=== PATIENT | male | born 1960 | race Caucasian/White ===

== ENCOUNTER 2019-03-11 08:41 | Inpatient (IN) ==
[2019-03-11 09:31] LABS: Basophils # 0.1 K/mcL (0.0-0.2); Basophils % 1.1 %; Eosinophils # 0.1 K/mcL (0.0-0.6); Eosinophils % 1.7 %; Hemoglobin 15.6 g/dL (12.9-16.9); Immature Granulocytes % 0.5 % (0-4); Lymphocytes # 2.3 K/mcL (0.6-4.6); Lymphocytes % 35.7 %; Mean Corpuscular HGB Conc 36.3 g/dL (31.6-35.5); Mean Corpuscular Hemoglobin 32.8 pg (28.0-33.3); Mean Corpuscular Volume 90.5 fL (83.0-100.0); Monocytes # 0.9 K/mcL (0.0-1.3); Monocytes % 13.7 %; Platelet Count 248 K/mcL (140-400); Red Blood Count 4.75 M/mcL (4.19-5.50); Red Cell Distribution Width 12.6 % (11.5-14.5); Segmented Neutrophils % 47.3 %; White Blood Count 6.3 K/mcL (4.3-11.1)
[2019-03-11 09:51] LABS: Calcium 8.9 mg/dL (8.6-10.3); Potassium 3.3 mEq/L (3.5-5.1)
[2019-03-11] MEDS ORDERED: 0.9 % Sodium Chloride 500 ML IVC ONE (09:53)
[2019-03-11] MEDS ORDERED: Naloxone 0.4 MG/ML INJ IVP PRN (11:44)
[2019-03-11] MEDS ORDERED: *HR* Dextrose 50 % in Water (Syg) 50 ML SYRINGE IVP PRN (11:48)
[2019-03-11] MEDS ORDERED: D5% in Water 1,000 ML IVC PRN (11:48)
[2019-03-11] MEDS ORDERED: Dextrose Gel 15 GM/37.5 ML TUBE PO PRN ×2 (11:48)
[2019-03-11] MEDS: Insulin LISPRO 300 UNITS/3 ML VIAL SQ SCH ×2 (13:42→17:04)
[2019-03-11] MEDS: *HR* Heparin 5,000 UNIT/ML VIAL SQ SCH ×2 (14:19→21:55)
[2019-03-11] MEDS ORDERED: *HR* HYDROcodone/Acet 5/325 mg TABLET PO PRN (16:09)
[2019-03-11] MEDS ORDERED: Gabapentin 300 MG CAPSULE PO SCH (21:00)
[2019-03-11] MEDS: Famotidine 20 MG TABLET PO SCH (21:54)
[2019-03-12 06:03] LABS: Basophils # 0.1 K/mcL (0.0-0.2); Basophils % 0.8 %; Eosinophils # 0.1 K/mcL (0.0-0.6); Eosinophils % 1.5 %; Hematocrit 45.1 % (37.5-50.1); Hemoglobin 15.4 g/dL (12.9-16.9); Immature Granulocytes % 0.8 % (0-4); Lymphocytes # 2.3 K/mcL (0.6-4.6); Lymphocytes % 31.4 %; Mean Corpuscular HGB Conc 34.1 g/dL (31.6-35.5); Mean Corpuscular Hemoglobin 32.8 pg (28.0-33.3); Monocytes # 0.9 K/mcL (0.0-1.3); Monocytes % 11.8 %; Neutrophils # 3.9 K/mcL (1.6-8.9); Platelet Count 262 K/mcL (140-400); Red Cell Distribution Width 12.8 % (11.5-14.5); Segmented Neutrophils % 53.7 %; White Blood Count 7.2 K/mcL (4.3-11.1)
[2019-03-12] MEDS: *HR* Heparin 5,000 UNIT/ML VIAL SQ SCH ×3 (06:12→20:59)
[2019-03-12 06:25] LABS: Calcium 8.7 mg/dL (8.6-10.3); Potassium 4.1 mEq/L (3.5-5.1)
[2019-03-12] MEDS: Gabapentin 300 MG CAPSULE PO SCH ×4 (09:36→20:58)
[2019-03-12] MEDS: Loratadine 10 MG TABLET PO SCH (09:36)
[2019-03-12] MEDS ORDERED: Aminoglycoside Consult 1 EACH MC ONE (11:52)
[2019-03-12] MEDS: Insulin LISPRO 300 UNITS/3 ML VIAL SQ SCH (19:14)
[2019-03-12] MEDS: Famotidine 20 MG TABLET PO SCH (20:58)
[2019-03-13 02:26] LABS: Calcium 8.9 mg/dL (8.6-10.3); Potassium 4.3 mEq/L (3.5-5.1)
[2019-03-13] MEDS: *HR* Heparin 5,000 UNIT/ML VIAL SQ SCH (05:33)
[2019-03-13 07:18] VITALS: BP 107/67
[2019-03-13] MEDS: Gabapentin 300 MG CAPSULE PO SCH (08:08)
[2019-03-13] MEDS: Loratadine 10 MG TABLET PO SCH (08:08)
== END 2019-03-13 11:53 | disposition home or self-care (01) | DRG 603 ==
LOC: EMEROOARM 08:41 → CDU 08:41 → SUATTDRO 10:48 → CDU 10:53 → 3BNU 16:33 → SUATTDRO 03-12 10:51
PROVIDERS: ADMIT Family Medicine; ATTEND Family Medicine